=== PATIENT | female | born 2000 | race Caucasian/White ===

== ENCOUNTER 2024-07-18 03:32 | Inpatient (IN) | payer OTHER, SELFPAY ==
[2024-07-17 21:55] VITALS: BP 147/86; BMI 22.4
[2024-07-17 22:02] VITALS: BP 133/80
[2024-07-17 22:09] LABS: % Basophils 0.2 % (0-2); % Immature Granulocytes 0.4 % (0-0.5); % Monocytes 5.8 % (1.7-9.3); % Neutrophils 87.6 % (42.2-75.2); Absolute Immature Granulocytes 0.1 10^3/uL (0-0.05); Absolute Lymphocytes 0.8 10^3/uL (1.2-3.4); Absolute Monocytes 0.8 10^3/uL (0.1-0.6); Absolute Neutrophils 11.7 10^3/uL (1.4-6.5); Hematocrit 42.7 % (37.0-47.0); Hemoglobin 15.1 g/dL (12.0-16.0); Mean Corp Hgb Conc. 35.4 g/dL (33.0-37.0); Mean Corpuscular Hgb 29.4 pg (27.0-31.0); Mean Corpuscular Volume 83.1 fL (81.0-99.0); Mean Platelet Volume 9.7 fL (7.4-10.4); Nucleated Red Blood Cells % 0 %; Platelet Count 215 10^3/uL (130-400); Red Blood Cell Count 5.14 10^6/uL (4.20-5.40); White Blood Cell Count 13.4 10^3/uL (4.8-10.8)
[2024-07-17 22:25] LABS: HCG, Serum Qualitative Screen Negative
--- NOTE | 2024-07-17 22:30 | ED.GENMED ---
History of Present Illness
<ANGEL Zapien - Last Filed: 07/18/24 01:06>
General
Chief Complaint: Withdrawal Symptoms
Source: patient and police
Exam Limitations: none
Time Seen by Provider: 07/17/24 22:05
Travel History
Have you had any contact with someone who has COVID-19?: No
Comment: pt unsure
Do you have any symptoms of coronavirus? Fever > 100 degrees, chills, cough, shortness of breath, sore throat, loss of taste or smell, muscle aches, or headache?: Yes
Symptoms:: chills, cough, muscle aches, ACUÑA
History of Present Illness
History of Present Illness:
This is a 24 y/o F pt with PMH of opioid use disorder x 2 years presenting to the ED accompanied by police for half-way medical clearance and withdrawl symptoms from smoking fetanyl. Pt reports last time she used was 07/17/24 at 11am. Has been constantly
using 16 bags of fetanyl per day for 2 years. Reports this is the longest she has been without using. Denies IVDU. Denies ever being treated for withdrawl. She states she is nauseous denies vomiting. Cough, rhinorrhea, rash on bilateral cheeks and
neck present, LUQ abdominal tenderness and L flank tenderness. LMP 07/17/24 denies any chance of .
Past History
<ANGEL Zapien - Last Filed: 07/18/24 01:06>
Past History
ED Past Medical History: None
ED Past Surgical History: None
Social History
Drug: Narcotics
Review of Systems
<ANGEL Zapien - Last Filed: 07/18/24 01:06>
Review of Systems
Constitutional: Reports fever, fatigue and chills
EENT: Reports runny nose
Respiratory: Reports cough
Cardiac: Reports palpitations
ABD/GI: Reports abdominal pain and nausea
: Reports flank pain
Musculoskeletal: Reports back pain
Skin: Reports rash
Neurological: Reports headache
Endocrine: Reports no symptoms
Phy Exam
<ANGEL Zapien - Last Filed: 07/18/24 01:06>
General Physical Exam
General Presentation: well appearing
General age: appears stated age
General Skin: flushed
General Habitus: poor hygiene
General Mental: alert
Eye Exam
Pupil Exam: Bilateral: round and reactive
Cardiovascular Exam
Cardiovascular Exam: tachycardia
Pulmonary Exam
Pulmonary Exam: lungs clear
Cough: non productive cough
Gastrointestinal Exam
Gastrointestinal Exam: no organomegaly
Scores
<ST RupaliUT - Last Filed: 07/18/24 01:06>
COW Clinical Opiate Withdrawal Scale
Resting Pulse Rate: 101-120
Sweating-over past 30min not from room temp or activity: Flushed or observable moistness on face
Restlessness-observation during assessment: Able to sit still
Pupil Size: Pupils possibly larger than normal for room light
Bone or Joint Aches: Mild diffuse discomfort
Runny Nose or Tearing-not accounted for by cold/allergies: Nose running or tearing
GI Upset-over last 30min: Nausea or loose stool
Tremor-observation of outstretched hands: Tremor can be felt, but not observed
Yawning-observation during assessment: No yawning
Anxiety or Irritability: None
Gooseflesh Skin: Piloerrection of skin can be felt or hairs standing up on arms
Score: 14
Withdrawal Severity: Moderate Withdrawal, consider starting Suboxone
<Radha Dowling DO - Last Filed: 07/18/24 01:10>
COW Clinical Opiate Withdrawal Scale
Score: 14
Withdrawal Severity: Moderate Withdrawal, consider starting Suboxone
Course
<ANGEL Zapien - Last Filed: 07/18/24 01:06>
Orders/Labs/Results
Orders:
Orders
07/17/24 22:01
Test Result ONCE
07/17/24 22:03
Alcohol Urgent
Complete Blood Count/With Diff Urgent
Comprehensive Metabolic Panel Urgent
HCG, Serum Qualitative Screen Urgent
Comment: Notify provider if positive test present
07/17/24 22:09
Urine Drug Abuse Screen Urgent
Date Specimen was Collected: 07/18/24
Time Specimen was Collected: 00:18
07/17/24 22:28
Urinalysis Reflex To Culture Urgent
Date Specimen was Collected: 07/18/24
Time Specimen was Collected: 00:18
0.9% Sodium Chloride 1000 ml [Nss] 1,000 ml IV BOLUS
07/17/24 22:29
Electrocardiogram (*1) Urgent
Reason for Study: Tachycardia
EKG- Treatment ONCE
07/17/24 22:41
CR Chest - 2 Views Urgent
Comment:
Reason For Exam: cough, fever x 2 days
07/17/24 22:42
Add On- LAB Urgent
Tests Added?: hepatic function tests
0.9% Sodium Chloride 1000 ml [Nss] 2,000 ml IV BOLUS
Acetaminophen 1000MG/100Ml [Ofirmev] 1,000 mg in 100 ml IV ONCE
Acetaminophen IV Indication:: ED Narcotic History-ONCE
Ondansetron Injectable [Zofran] 4 mg IV NOW STA
07/17/24 22:59
COVID-19 Antigen Urgent
Source: Nasal Swab
Lactic Acid Urgent
Blood Culture Q30M
BRENNAN Source: Blood/Venous
Specimen Description:
Blood Culture Q30M
BRENNAN Source: Blood/Venous
Specimen Description:
Influenza A+B Rapid Molecular Urgent
BRENNAN Source: Nasal Swab
Specimen Description:
07/17/24 23:02
Metoclopramide [Reglan] 5 mg IV NOW STA
07/18/24 00:20
Fentanyl, Urine Urgent
Urine Microscopic Reflex Cult Urgent
Urine Culture Urgent
BRENNAN Source: U
Specimen Description:
Date Specimen was Collected: 07/18/24
Time Specimen was Collected: 00:18
07/18/24 00:42
CT Abd/pel Without Iv Or Oral Urgent
Comment:
Reason For Exam: left flank pain, hematuria, fever
07/18/24 01:01
Metoclopramide [Reglan] 5 mg IV NOW STA
07/18/24 01:02
CefTRIAXone [Rocephin] 1,000 mg IV NOW STA
07/18/24 01:03
Doxycycline Hyclate [Vibramycin] 100 mg 0.9% Sodium Chloride 250 ml [Nss] 250 ml IV NOW
Abnormal Lab Results
07/17/24 07/18/24
22:03 00:20
WBC 13.4 H 10^3/uL
(4.8-10.8)
Abs Immat Gran (auto) 0.1 H 10^3/uL
(0-0.05)
Absolute Neuts (auto) 11.7 H 10^3/uL
(1.4-6.5)
Absolute Lymphs (auto) 0.8 L 10^3/uL
(1.2-3.4)
Absolute Monos (auto) 0.8 H 10^3/uL
(0.1-0.6)
Neutrophils % 87.6 H %
(42.2-75.2)
Lymphocytes % 6.0 L %
(20.5-51.1)
Chloride 97 L mmol/L
(98-107)
BUN 23 H mg/dl
(7-17)
Creatinine 1.4 H mg/dL
(0.6-1.0)
Glucose 119 H mg/dl
(70-99)
Urine Ketones 3+ A
(Negative)
Ur Occult Blood Reflex 4+ A
(Negative)
Urine RBC 11-15 A /HPF
(0-2)
Urine Bacteria (Reflex) Moderate A
(Negative)
Urine Albumin (Reflex) 2+ A
(Neg - Trace)
Urine Fentanyl Screen Positive H
(Negative)
Ur Amphetamines Screen Positive H
(Negative)
U Methamphetamines Scrn Positive H
(Negative)
07/17/24 22:03
07/17/24 22:03
Vital Signs
Initial and Last Documented VS:
Initial Vital Signs
Temp Pulse Resp BP Pulse Ox
99.8 F 101 24 147/86 99
07/17/24 21:55 07/17/24 21:55 07/17/24 21:55 07/17/24 21:55 07/17/24 21:55
Last Documented Vital Signs
Temp Pulse Resp BP Pulse Ox
99.0 F 90 20 119/75 100
07/18/24 00:15 07/18/24 00:15 07/18/24 00:15 07/18/24 00:00 07/18/24 00:15
<Radha Dowling, DO - Last Filed: 07/18/24 01:10>
Orders/Labs/Results
Orders:
Orders
07/17/24 22:01
Test Result ONCE
07/17/24 22:03
Alcohol Urgent
Complete Blood Count/With Diff Urgent
Comprehensive Metabolic Panel Urgent
HCG, Serum Qualitative Screen Urgent
Comment: Notify provider if positive test present
07/17/24 22:09
Urine Drug Abuse Screen Urgent
Date Specimen was Collected: 07/18/24
Time Specimen was Collected: 00:18
07/17/24 22:28
Urinalysis Reflex To Culture Urgent
Date Specimen was Collected: 07/18/24
Time Specimen was Collected: 00:18
0.9% Sodium Chloride 1000 ml [Nss] 1,000 ml IV BOLUS
07/17/24 22:29
Electrocardiogram (*1) Urgent
Reason for Study: Tachycardia
EKG- Treatment ONCE
07/17/24 22:41
CR Chest - 2 Views Urgent
Comment:
Reason For Exam: cough, fever x 2 days
07/17/24 22:42
Add On- LAB Urgent
Tests Added?: hepatic function tests
0.9% Sodium Chloride 1000 ml [Nss] 2,000 ml IV BOLUS
Acetaminophen 1000MG/100Ml [Ofirmev] 1,000 mg in 100 ml IV ONCE
Acetaminophen IV Indication:: ED Narcotic History-ONCE
Ondansetron Injectable [Zofran] 4 mg IV NOW STA
07/17/24 22:59
COVID-19 Antigen Urgent
Source: Nasal Swab
Lactic Acid Urgent
Blood Culture Q30M
BRENNAN Source: Blood/Venous
Specimen Description:
Blood Culture Q30M
BRENNAN Source: Blood/Venous
Specimen Description:
Influenza A+B Rapid Molecular Urgent
BRENNAN Source: Nasal Swab
Specimen Description:
07/17/24 23:02
Metoclopramide [Reglan] 5 mg IV NOW STA
07/18/24 00:20
Fentanyl, Urine Urgent
Urine Microscopic Reflex Cult Urgent
Urine Culture Urgent
BRENNAN Source: U
Specimen Description:
Date Specimen was Collected: 07/18/24
Time Specimen was Collected: 00:18
07/18/24 00:42
CT Abd/pel Without Iv Or Oral Urgent
Comment:
Reason For Exam: left flank pain, hematuria, fever
07/18/24 01:01
Metoclopramide [Reglan] 5 mg IV NOW STA
07/18/24 01:02
CefTRIAXone [Rocephin] 1,000 mg IV NOW STA
07/18/24 01:03
Doxycycline Hyclate [Vibramycin] 100 mg 0.9% Sodium Chloride 250 ml [Nss] 250 ml IV NOW
Abnormal Lab Results
07/17/24 07/18/24
22:03 00:20
WBC 13.4 H 10^3/uL
(4.8-10.8)
Abs Immat Gran (auto) 0.1 H 10^3/uL
(0-0.05)
Absolute Neuts (auto) 11.7 H 10^3/uL
(1.4-6.5)
Absolute Lymphs (auto) 0.8 L 10^3/uL
(1.2-3.4)
Absolute Monos (auto) 0.8 H 10^3/uL
(0.1-0.6)
Neutrophils % 87.6 H %
(42.2-75.2)
Lymphocytes % 6.0 L %
(20.5-51.1)
Chloride 97 L mmol/L
(98-107)
BUN 23 H mg/dl
(7-17)
Creatinine 1.4 H mg/dL
(0.6-1.0)
Glucose 119 H mg/dl
(70-99)
Urine Ketones 3+ A
(Negative)
Ur Occult Blood Reflex 4+ A
(Negative)
Urine RBC 11-15 A /HPF
(0-2)
Urine Bacteria (Reflex) Moderate A
(Negative)
Urine Albumin (Reflex) 2+ A
(Neg - Trace)
Urine Fentanyl Screen Positive H
(Negative)
Ur Amphetamines Screen Positive H
(Negative)
U Methamphetamines Scrn Positive H
(Negative)
07/17/24 22:03
07/17/24 22:03
Vital Signs
Temp: 101.6 F
Initial and Last Documented VS:
Initial Vital Signs
Temp Pulse Resp BP Pulse Ox
99.8 F 101 24 147/86 99
07/17/24 21:55 07/17/24 21:55 07/17/24 21:55 07/17/24 21:55 07/17/24 21:55
Last Documented Vital Signs
Temp Pulse Resp BP Pulse Ox
99.0 F 90 20 119/75 100
07/18/24 00:15 07/18/24 00:15 07/18/24 00:15 07/18/24 00:00 07/18/24 00:15
<ANGEL Zapien - Last Filed: 07/18/24 01:06>
*Critical Care Note
Total Time (30-74mins, 75-104mins- exclusive of procedures): Not Applicable
<Radha Dowling DO - Last Filed: 07/18/24 01:10>
*Radiology
Radiology exam reviewed: preliminary read by ED provider (Chest x-ray shows left lower lobe infiltrate)
*Pulse Oximetry
Patient hypoxic: no
*Apparel Merchandiser Interpretation
Rate: tachycardiac
Interpretation: abnormal
Rhythm: sinus
*Critical Care Note
Total Time (30-74mins, 75-104mins- exclusive of procedures): Not Applicable
ED Attending Note
<ANGEL Zapien - Last Filed: 07/18/24 01:06>
-
Portions of this chart may have been created with voice recognition software.� Occasional wrong word or��sound alike� substitutions may have occurred due to the inherent limitations of voice recognition software.
<Radha Dowling DO - Last Filed: 07/18/24 01:10>
ED Attending Note
Patient seen and examined by attending physician: Yes
I performed the substantive portion of visit, reviewed & personally made and approve the management plan that is documented in note by myself or GENTRY.: Yes
ED Attending Note:
This is a 24-year-old female who is brought to the ED by [facility] for medical clearance for incarceration. She has history of opioid use disorder, admits to smoking fentanyl generally 16 bags per day for the past 2 years. Last use, 11
am. She also has prior history of self injury, prior history of cutting. She takes no medicines on a daily basis. No prior treatment for opioid use disorder.
She complains of URI symptoms, cough, congestion, intermittent fever and chills over the past 2 to 3 days. She admits that she asked her father to bring her to the hospital 2 days ago due to cough, fever, chills. She also notes some urinary
frequency over the past few days but denies dysuria nor urgency nor hematuria. She complains of left upper quadrant to left flank pain that began perhaps 1 to 2 days ago. She denies injury or fall.
She complains of moderate nausea, sporadic vomiting this evening, similar to prior withdrawal symptoms in the past. No hematemesis, no diarrhea nor constipation.
She is noted to have red blotchy rash to her face and anterior neck. She denies itch, denies swelling. Admits to sporadic similar rash generally onset with withdrawal symptoms.
Her normal menstrual period began today.
GENERAL: 24-year-old female appears her stated age, awake and alert, easily communicative, mildly ill in appearance. Oral temperature 101.6 �F. Borderline tachycardic during my initial exam. Intermittent moist nonproductive cough is noted.
EYE: pupils equal and reactive. anicteric
NECK: Supple, nontender, no meningismus, no significant adenopathy.
ENT: posterior pharynx is without injection, scant pearly PND, oral mucosa is mildly dry. TM clear b/l, nares with boggy turbinates with pearly to pale yellow rhinorrhea.
CARDIAC: Regular rhythm at 99. no murmur.
LUNGS: no respiratory distress. intermittent cough. scattered end expiratory wheezing at bases
ABDOMEN: Soft, nondistended, moderate TTP LUQ and exquisite TTP left flank with (+)CVA tenderness on the left. no r/g, normoactive BS.
NEUROLOGICAL: Alert and oriented x3, no focal neuro deficits.
SKIN: Hot to touch and dry, normal color, skin intact. erythematous, confluent patchy rash to face, anterior neck. horizontal area of erythema left posterior lower flank without ecchymosis.
MUSCULOSKELETAL: No C/C/E. peripheral pulses are full and equal b/l. No palpable tenderness.
PSYCH: Normal and appropriate interaction.
acute febrile illness with URI, concern for pneumonia, viral URI, covid, flu, sepsis
Left flank pain, concern for pyelonephritis, ureteric stone
concern for opioid w/d syndrome
Will check labs, including flu, covid, lactic acid, blood cultures, urinalysis, UDS
will check CXR
will consider CT abd pelvis
Will initiate IVF, give zofran for nausea, tylenol for fever
will check EKG-assess QT prior to zofran
to consider initiation of buprenorphine but at this point, clinically, febrile illness seems to be our most pressing issue. Only mild w/d symptoms currently.
EKG shows mildly prolonged QT. Therefore will hold off on zofran and instead give Reglan for nausea.
01:05
Fever improving.
Nausea improved but has not resolved.
CXR shows LLL infiltrate. This is likelyh source of LUQ, L flank pain
urinalysis shows mod bacteria but only 6-10 WBC's and is a contaminated specimen. Not consistent with UTI.
Will continue IVF, continue reglan.
Will start Rocephin, doxy for CAP
Will continue to observe for w/d symptoms
Will admit to hospitalist service.
Discharge Plan
Departure
Patient Disposition: Admit
Date of Disposition: 07/18/24
Time of Disposition: 01:06
Admit to: Telemetry
Admit to doctor: Yvonne
Presentation/result/management discussed w/ accepting MD/DO: Hospitalist
Condition: Fair
Discharge Problem:
community acquired LLL pneumonia, Dehydration with RACHAEL, Fever r/o sepsis, Opioid use disorder
Prescriptions:
No Action
No Current Medications
0
Referrals:
NONE,* [Family Provider] -
Interventions
Interventions:
*Risk Screen - Suicide Last Done: 07/17/24 21:55
*General Assessment Last Done: 07/17/24 21:55
*Neglect/Abuse Screening Last Done: 07/17/24 21:55
*ED- Fall Risk Assessment Last Done: 07/17/24 21:55
*ED COVID-19 Vaccine History Last Done: 07/17/24 22:07
ED- Neurological Assessment Last Done: 07/17/24 22:08
ED-Psychological Assessment Last Done: 07/17/24 22:08
Discharge Date and Time
Print Language: MALAGASY
[2024-07-17 22:32] LABS: Alcohol < 10 mg/dl; Blood Urea Nitrogen 23 mg/dl (7-17); Calcium 9.7 mg/dl (8.4-10.2); Carbon Dioxide 25 mmol/L (22-30); Chloride 97 mmol/L (98-107); Estimated Creatinine Clearance 58 ml/min; Glucose 119 mg/dl (70-99); Potassium 3.6 mmol/L (3.5-5.1); Sodium 138 mmol/L (135-145); eGFR 53.54
[2024-07-17] MEDS: NSS 2000 IV (22:57)
[2024-07-17] MEDS: OFIRMEV 100 IV (22:58)
[2024-07-17 23:00] VITALS: BP 142/79
[2024-07-17 23:09] LABS: AST (SGOT) 36 U/L (14-36); Albumin 4.3 g/dl (3.5-5.0); Alkaline Phosphatase 84 U/L (38-126); Total Protein 7.8 g/dl (6.3-8.2)
[2024-07-17 23:19] LABS: Lactic Acid 1.5 mmol/L (0.7-2.0)
[2024-07-17 23:22] LABS: COVID-19 Antigen Negative (Negative)
[2024-07-17 23:26] VITALS: BP 142/80
[2024-07-17 23:27] LABS: ALT (SGPT) 18 U/L (0-35)
[2024-07-17] MEDS: REGLAN 5 MG IV (23:29)
[2024-07-18] VITALS (17 sets, daily range): BP systolic 110–158; BP diastolic 74–126; BMI 22.4
[2024-07-18 00:27] LABS: Urine Albumin 2+ (Neg - Trace); Urine Bilirubin Negative (Negative); Urine Character Slightly Cloudy (Clear); Urine Color Yellow; Urine Glucose Negative (Negative); Urine Ketone 3+ (Negative); Urine Leukocyte Negative (Negative); Urine Nitrite Negative (Negative); Urine Occult Blood 4+ (Negative); Urine Urobilinogen Negative (Neg - 1+)
[2024-07-18 00:44] LABS: Amphetamines Positive (Negative); Barbiturates Negative (Negative); Benzodiazepines Negative (Negative); Buprenorphine Negative (Negative); Cocaine Negative (Negative); Marijuana Negative (Negative); Methadone Negative (Negative); Methamphetamines Positive (Negative); Opiates Negative (Negative); Phencyclidine Negative (Negative); Tricyclic Antidepressants Negative (Negative)
[2024-07-18 00:48] LABS: Urine Squamous Cell >30 /LPF (Few)
[2024-07-18 00:49] LABS: Urine Amorphous Seen; Urine Hyaline Cast 0-2 /LPF (0-2)
[2024-07-18 00:51] LABS: Urine Bacteria Moderate (Negative); Urine Mucus Moderate
[2024-07-18 00:55] LABS: Fentanyl, Urine Positive (Negative)
[2024-07-18] MEDS: ROCEPHIN 1000 MG IV (01:13)
[2024-07-18] MEDS: REGLAN 5 MG IV ×2 (01:13→20:29)
[2024-07-18] MEDS: VIBRAMYCIN 260 MG IV (01:53)
--- NOTE | 2024-07-18 02:59 | HPS.HSE ---
Family Physician
-
Family Physician: * NONE
Chief Complaint
-
Cough and fevers
History of Present Illness
This is a 24-year-old with opioid abuse disorder who presents to the emergency department from correctional facility where she was being held temporarily for a misdemeanor with cough and nausea and fever and tachycardia.
Patient reported that she was booked on Thursday, last use of fentanyl was Thursday at 11 AM. She reported that while she was undergoing intake she had nausea. She was found to be tachycardic and when they checked her temperature she was febrile so
she was brought to the emergency department for clearance. Patient reports that she has had about 2 days of shortness of breath and a productive cough. She reports intermittent chills. She is unaware that she has been having fevers prior to this.
She denies any sick contacts. She has no history of immunosuppression. She has no recent travel. She vapes regularly. She uses approximately 16 bags of fentanyl per day and has been doing so for the last 2 years.
In the emergency department she was febrile to 101.5,6, blood pressure was 127/80 with a pulse of 86 satting at 9 7% on room air. ECG shows a normal sinus rhythm at a rate of 91, Qtc 574, chest x-ray shows a left lower lobe infiltrate. She also
had a CT scan of the abdomen due to the nausea vomiting which showed gastric wall thickening and prominent air-fluid levels along with mild small bowel wall thickening consistent with a gastroenteritis.
She had a white count of 13.7, hemoglobin and platelets were normal. Electrolytes were within the normal range. Creatinine was slightly elevated at 1.4 but no priors for comparison.
UA was unremarkable, drug screen was positive for fentanyl, amphetamine. Negative for ethanol. She was COVID-negative, flu negative.
Medical History
Past Medical History
Past Medical History: Reports Other (Fentanyl use)
Past Surgical History: Reports None
Social History
Tobacco: Vaping
Alcohol: None
Drug: Narcotics
Personal: Single
Family History
Family History: Not pertinent
Allergies / Home Medications
Allergies reflects when Allergies were last updated in [facility].
Home Medications with original date entered in [facility]
Allergy/Medication List:
Allergies
Allergy/AdvReac Type Severity Reaction Status Date / Time
No Known Allergies Allergy Unverified 07/17/24 21:53
Home Medications
No Meds [No Current Medications] 07/17/24
Review of Systems
-
History Source: Patient
Constitutional: Reports No Symptoms
EENT: Reports No Symptoms
Respiratory: Reports Cough and Trouble Breathing
Cardiac: Reports No Symptoms
Abdomen/GI: Reports Abdominal Pain, Nausea and Vomiting
: Reports No Symptoms
Musculoskeletal: Reports No Symptoms
Skin: Reports No Symptoms
Neurological: Reports No Symptoms
Endocrine: Reports No Symptoms
Hematologic/Lymphatic: Reports No Symptoms
Psych: Reports No Symptoms
Physical Exam
Vital Signs
Vital Signs
Temp Pulse Resp BP Pulse Ox
99.0 F 86 21 127/83 97
07/18/24 00:15 07/18/24 02:30 07/18/24 02:30 07/18/24 02:00 07/18/24 01:54
Physical Exam
General: Well Developed, Well Nourished, No Apparent Distress, Comfortable and Conversant
HEENT: NormoCephalic, Anicteric, Moist mucous membranes and Atraumatic
Respiratory: Clear
Cardiac: S1/S2 and Regular Rhythm
Breast: Deferred by me
GI: Soft, Non Tender, Non Distended and Normal Bowel Sounds
Rectal: Deferred by Provider
Genito-urinary: Deferred by me
Musculoskeletal: No Clubbing, No Cyanosis and No Edema
Skin: Warm
Neuro: AO x 3 and Nonfocal/grossly intact
Hematologic/Lymphatic: No Lymphadenopathy
Psych: Calm
Laboratory Results
-
07/17/24 22:03
07/17/24 22:03
Laboratory Results
Lactic Acid 1.5 mmol/L (0.7-2.0) 07/17/24 22:59
Total Bilirubin 1.0 mg/dl (0.2-1.3) 07/17/24 22:03
AST 36 U/L (14-36) 07/17/24 22:03
ALT 18 U/L (0-35) 07/17/24 22:03
Alkaline Phosphatase 84 U/L (38-126) 07/17/24 22:03
Data Reviewed
-
Diagnostic Radiology: Image Personally Visualized and interpreted
CT Scan: Report Reviewed by me
Medical Tests (Nuc Med, Echo, EKG etc): Image Personally Visualized and interpreted
Lab Data: Labs Reviewed by me
Old Records: Reviewed
Impression/Plan
-
IMPRESSION:
24-year-old female with history of fentanyl use presenting to the emergency department with cough and shortness of breath found to have a left lower lobe pneumonia. Last fentanyl use was 11 AM on Thursday. She is not hypoxic but febrile and slightly
tachycardic initially. She currently is well-appearing and in no acute distress. She shows no signs of acute withdrawal at this time but she has received some medications.
PLAN:
1. Pneumonia - community acquired pneumonia, no known risk factors besides drug use, non-iv
- admit to telemetry, monitor qt
-due to fentanyl use and elongation of QT will cover with ceftriaxone doxycycline at this time
-Blood cultures sent
-Supportive measures with incentive spirometry, cough suppression antiemetics and pain control
-If remains stable probably likely to be discharged within 24 to 48 hours
2. Opioid use- last use within 24 hours. Does not appear to be in active withdrawal but at high risk
- COWS with COWs protocol
- case management for referral for outpatient detox
DVT PPX - lovenox sq
code status - full code
[2024-07-18] MEDS: NSS 1000 IV ×3 (04:35→23:44)
[2024-07-18 05:31] LABS: Hematocrit 37.9 % (37.0-47.0); Hemoglobin 13.7 g/dL (12.0-16.0); Mean Corp Hgb Conc. 36.1 g/dL (33.0-37.0); Mean Corpuscular Hgb 29.8 pg (27.0-31.0); Mean Corpuscular Volume 82.6 fL (81.0-99.0); Mean Platelet Volume 9.7 fL (7.4-10.4); Platelet Count 200 10^3/uL (130-400); Red Blood Cell Count 4.59 10^6/uL (4.20-5.40); Red Cell Dist. Width 12.3 % (11.5-14.5); White Blood Cell Count 16.4 10^3/uL (4.8-10.8)
[2024-07-18] MEDS: SUBUTEX 8 MG SL ×2 (05:48→07:32)
[2024-07-18 05:53] LABS: ALT (SGPT) 15 U/L (0-35); AST (SGOT) 25 U/L (14-36); Albumin 3.5 g/dl (3.5-5.0); Alkaline Phosphatase 84 U/L (38-126); Blood Urea Nitrogen 19 mg/dl (7-17); Calcium 8.9 mg/dl (8.4-10.2); Carbon Dioxide 22 mmol/L (22-30); Chloride 105 mmol/L (98-107); Creatine Phosphokinase 132 U/L (30-135); Direct Bilirubin 0.3 mg/dl (0.0-0.4); Estimated Creatinine Clearance 67 ml/min; Glucose 104 mg/dl (70-99); Magnesium 1.6 mg/dl (1.6-2.3); Potassium 3.2 mmol/L (3.5-5.1); Sodium 141 mmol/L (135-145); Total Bilirubin 0.6 mg/dl (0.2-1.3); Total Protein 6.4 g/dl (6.3-8.2); eGFR > 60.00
[2024-07-18] MEDS: KCL 40 MEQ PO (06:32)
[2024-07-18] MEDS: VIBRAMYCIN 100 MG PO (07:31)
--- NOTE | 2024-07-18 08:16 | W.PN.HOSP.TC ---
Addendum entered and electronically signed by Cristine Kaur MD 07/18/24 09:05:
discussed plan with RN and pharmacy. Patient was taking 16 bags of fentanyl, that's equivalent to 4800mg oxycodone/day. She currently confirms that she is feeling better. She has received 2 doses of normal dosing buprenorphine. I will put
Oxycodone 20mg IR PRN. If she starts to appear in worsening withdrawal, then would start Oxycodone ER per microdosing order set to help treat withdrawal. Per pharmacy, would not now go back to lower dosing of buprenorphine that is within
microdosing order set but continue typical COWS treatment protocol.
Original Note:
Today's Communication/Plan
-
antibiotics
buprenorphine
likely discharge tomorrow if remains afebrile
Assessment / Plan
Assessment / Plan
IMPRESSION:
24-year-old female with history of fentanyl use presenting to the emergency department with cough and shortness of breath found to have a left lower lobe pneumonia. Last fentanyl use was 11 AM on Thursday. She is not hypoxic but febrile and slightly
tachycardic initially. She currently is well-appearing and in no acute distress. She shows no signs of acute withdrawal at this time but she has received some medications.
CT A/P
IMPRESSION:
1. Left lower lobe airspace consolidation, suggestive of pneumonia. No left pleural effusion.
2. No evidence of nephrolithiasis, hydronephrosis, or perinephric stranding.
3. Possible mild gastroenteritis.
PLAN:
1. Pneumonia - community acquired pneumonia, no known risk factors besides drug use, non-iv
- admit to telemetry, monitor qt
-due to fentanyl use and elongation of QT will cover with ceftriaxone doxycycline at this time
-Blood cultures sent
-Supportive measures with incentive spirometry, cough suppression antiemetics and pain control
-If remains stable probably likely to be discharged within 24 to 48 hours
2. Opioid use- last use within 24 hours. Does not appear to be in active withdrawal but at high risk
- COWS with COWs protocol - patient tolerating regular buprenorphine dosing
- case management for referral for outpatient detox
Hypokalemia
-s/p repletion
RACHAEL
-continue IVF
DVT PPX - lovenox sq
code status - full code
Anticipated Discharge: 24 - 48 hours
Subjective/Interval History
-
Date of Service: July 18, 2024
she states she is feeling better
has an appetite and wants to eat today
Objective Data
-
Labs:
Laboratory Results
07/17/24 07/18/24
22:03 05:07
WBC 13.4 H 16.4 H
Hgb 15.1 13.7
Hct 42.7 37.9
Plt Count 215 200
Sodium 138 141
Potassium 3.6 3.2 L
Chloride 97 L 105
Carbon Dioxide 25 22
BUN 23 H 19 H
Creatinine 1.4 H 1.2 H
Glucose 119 H 104 H
Calcium 9.7 8.9
Total Bilirubin 1.0 0.6
AST 36 25
ALT 18 15
Alkaline Phosphatase 84 84
Vital Signs:
Vital Signs
Temp Pulse Resp BP Pulse Ox
98.1 F 81 26 141/77 100
07/18/24 07:33 07/18/24 07:00 07/18/24 07:00 07/18/24 06:00 07/18/24 07:00
I&O
07/17/24 07/18/24 07/19/24
06:59 06:59 06:59
Intake Total 400 / 400
Balance 400 / 400
Review of Systems
-
History Source: Patient
All other systems: Reviewed and negative
Physical Exam
-
General: No Apparent Distress
HEENT: PERRLA
Respiratory: Clear to Auscultation; Negative Wheezes
Cardiac: Regular Rhythm and S1/S2
GI: Soft and Nontender
Musculoskeletal: No Edema
Skin: Warm and Dry; Negative Rash
Neuro: AO x 3
Psych: Calm
Data Reviewed
-
Diagnostic Radiology: Report Reviewed by me
Labs: Labs Reviewed by me
[2024-07-18] MEDS: TYLENOL 1000 MG PO (09:23)
--- NOTE | 2024-07-18 09:27 | PTCARENOTE ---
Pt AAOx3 cooperative, rocking back and forth swaety and pale. Coughing at times. Talkative at times. 2 Physical Therapy Asst sitting with pt.
[2024-07-18 09:43] LABS: Phosphorus 3.7 mg/dl (2.5-4.5)
[2024-07-18] MEDS: MAGNESIUM OXIDE 500 MG PO (13:26)
--- NOTE | 2024-07-18 13:27 | PTCARENOTE ---
Pt did not eat breakfast although it was ordered for her
--- NOTE | 2024-07-18 13:51 | CM ---
Patient in Custody of [facility]'s Office here with Dx pneumonia, Opiod use. Tox screen + for fentanyl, amphetamine, methamphetamine. Receiving Subutex. COWS per nursing. Per nurse; alert, ambulatory.
Spoke with patient who states she has not done any prior inpatient or outpatient drug rehab and would be interested in doing that.
Spoke with the [facility] Deputies in patient's room; patient was not booked into the care home yet, as they send her here for medical clearance. She will remain in custody while here and will discharge with the guards. Patient will have appt at the
[facility] once discharged.
Spoke with Mary, Nurse [facility]; they were not aware of this patient as she was not yet processed at the care home. They will handle the request for drug rehab by placing the patient on a drug taper when she is at [facility]. The for nurse report
[phone], fax [phone].
Plan discharge to [facility].
[2024-07-18] MEDS: CATAPRES 0.1 MG PO (14:08)
--- NOTE | 2024-07-18 14:50 | PTCARENOTE ---
Pt taken to BR voided, Brushed her teeth , wiped with Lavender clothes. Given a brush and comb for her hair. Pt more tremulus at this time. Clnidine given as ordered for BP
[2024-07-18] MEDS: LOVENOX 40 MG SC (17:56)
--- NOTE | 2024-07-18 18:22 | PTCARENOTE ---
Took pt to BR and norticed Sidney knees were red and warm to touch . TT DR Kaur
[2024-07-18] MEDS: PEPCID 20 MG IV (18:40)
--- NOTE | 2024-07-18 18:40 | W.PN.UPDATE ---
Update Note
Progress Note Update
patient with new diffuse confluent erythematous rash along cheeks, upper back, upper chest, bilateral knees. No lip or tongue swelling.
Can bend bilateral knees, no significant tenderness. No wheezing on exam. No lip or tongue swelling. Rash is blanchable.
She denies itching and had not noticed the rash, RN noted knee redness.
Concern for allergic reaction. Likely related to antibiotics - listed both as allergy for now, and will transition to Levaquin.
She received Clonidine earlier. Will stop this medication for now as well.
Benadryl 50mg x 1 now and include rash/itching in PRN
pepcid x 1
daily claritin
change Antibiotics to Levaquin
*patient will need to follow up with an echocardiograph tech after discharge to clarify allergies
[2024-07-18] MEDS: NSS (PRESERVATIVE FREE) 8 ML IV (18:41)
[2024-07-18] MEDS: BENADRYL 50 MG IV (18:43)
[2024-07-18] MEDS: ZANAFLEX 2 MG PO (20:27)
[2024-07-18] MEDS: LEVAQUIN 750 MG PO (21:02)
[2024-07-19] VITALS (11 sets, daily range): BP systolic 127–145; BP diastolic 84–97; BMI 22.9
--- NOTE | 2024-07-19 00:08 | PTCARENOTE ---
Pt with desat to 70s while laying flat, 2L O2 placed, pt returned to baseline 99%. Does report some slight SOB. Presents with moist CONCESSION STAND ATTENDANT cough. COWS as documented. Medicated per JUN. Pt with LUE cuffed to bed, two officers present at bedside. Call
[facility] within reach. IVF remain intact through [facility].
[2024-07-19 04:39] LABS: Hematocrit 33.4 % (37.0-47.0); Hemoglobin 11.9 g/dL (12.0-16.0); Mean Corp Hgb Conc. 35.6 g/dL (33.0-37.0); Mean Corpuscular Volume 84.1 fL (81.0-99.0); Mean Platelet Volume 9.7 fL (7.4-10.4); Platelet Count 189 10^3/uL (130-400); Red Blood Cell Count 3.97 10^6/uL (4.20-5.40); Red Cell Dist. Width 12.6 % (11.5-14.5); White Blood Cell Count 11.3 10^3/uL (4.8-10.8)
[2024-07-19 05:10] LABS: Blood Urea Nitrogen 15 mg/dl (7-17); Calcium 8.7 mg/dl (8.4-10.2); Carbon Dioxide 20 mmol/L (22-30); Chloride 110 mmol/L (98-107); Estimated Creatinine Clearance 89 ml/min; Glucose 106 mg/dl (70-99); Magnesium 1.7 mg/dl (1.6-2.3); Potassium 3.6 mmol/L (3.5-5.1); Sodium 142 mmol/L (135-145); eGFR > 60.00
[2024-07-19 07:18] LABS: % Basophils 0.2 % (0-2); % Eosinophils 1.5 % (0-6); % Immature Granulocytes 1.2 % (0-0.5); % Monocytes 6.5 % (1.7-9.3); % Neutrophils 67.6 % (42.2-75.2); Absolute Eosinophils 0.2 10^3/uL (0-0.7); Absolute Immature Granulocytes 0.1 10^3/uL (0-0.05); Absolute Lymphocytes 2.6 10^3/uL (1.2-3.4); Absolute Monocytes 0.7 10^3/uL (0.1-0.6); Absolute Neutrophils 7.6 10^3/uL (1.4-6.5); Nucleated Red Blood Cells % 0 %
--- NOTE | 2024-07-19 08:42 | W.PN.HOSP.TC ---
Today's Communication/Plan
-
change fluids
monitor PO intake
anticipate DC tomorrow; need to ensure rash fully resolved and appetite improved
repeat EKG to monitor QTc
Assessment / Plan
Assessment / Plan
IMPRESSION:
24-year-old female with history of fentanyl use presenting to the emergency department with cough and shortness of breath found to have a left lower lobe pneumonia. Last fentanyl use was 11 AM on Thursday. She is not hypoxic but febrile and slightly
tachycardic initially. She currently is well-appearing and in no acute distress. She shows no signs of acute withdrawal at this time but she has received some medications.
CT A/P
IMPRESSION:
1. Left lower lobe airspace consolidation, suggestive of pneumonia. No left pleural effusion.
2. No evidence of nephrolithiasis, hydronephrosis, or perinephric stranding.
3. Possible mild gastroenteritis.
PLAN:
1. Pneumonia - community acquired pneumonia, no known risk factors besides drug use, non-iv
-admitted to telemetry
-patient with diffuse erythematous blanchable rash after receiving ceftriaxone/doxycycline. For now those are listed as allergies and antibiotics switched to Levaquin (repeat EKG with improved qtc)
-repeat EKG now on Levaquin
-F/U cultures
-Supportive measures with incentive spirometry, cough suppression antiemetics and pain control
2. Opioid use- last use within 24 hours prior to admission.
- started on COWS protocol and tolerating
- patient was using 16 bags fentanyl per day which = 4800mg oxycodone.
- She remains without significant withdrawal
-oxycodone PRN
-clonidine held as this was also given pre-rash
- case management for referral for outpatient detox
-OK to DC once patient eating and drinking OK
Rash
-allergic reaction to either Ceftriaxone/Doxy/ Clonidine or buprenorphine
-antibiotics and clonidine held for now
-if rash recurs will stop buprenorphine
RACHAEL
-now resolved
-change IVF to D5 maintenance with K
Hypokalemia
-s/p repletion
DVT PPX - lovenox sq
code status - full code
51 minutes spent on patient care
Anticipated Discharge: 24 - 48 hours
Subjective/Interval History
-
Date of Service: July 19, 2024
rash improving
denies feeling tremulous but doesn't have an appetite
no abdomninal pain
Objective Data
-
Labs:
Laboratory Results
07/19/24
04:19
WBC 11.3 H
Hgb 11.9 L
Hct 33.4 L
Plt Count 189
Sodium 142
Potassium 3.6
Chloride 110 H
Carbon Dioxide 20 L
BUN 15
Creatinine 0.9
Glucose 106 H
Calcium 8.7
Vital Signs:
Vital Signs
Temp Pulse Resp BP Pulse Ox
98.0 F 72 12 141/85 94
07/19/24 03:00 07/19/24 04:00 07/19/24 04:00 07/19/24 04:00 07/19/24 04:00
I&O
07/18/24 07/19/24 07/20/24
06:59 06:59 06:59
Intake Total 400 / 400 1200 / 1200
Balance 400 / 400 1200 / 1200
Review of Systems
-
History Source: Patient
All other systems: Reviewed and negative
Physical Exam
-
General: Other (disheveled appearing, some erythema across right cheek blanchable)
HEENT: PERRLA
Respiratory: Clear to Auscultation; Negative Wheezes
Cardiac: Regular Rhythm and S1/S2
GI: Soft and Nontender
Musculoskeletal: No Edema
Skin: Warm, Dry and Rash (rash resolved b/l knees; mild erythema across chest )
Neuro: AO x 3
Psych: Calm
Data Reviewed
-
Diagnostic Radiology: Report Reviewed by me
Labs: Labs Reviewed by me
[2024-07-19] MEDS: SUBUTEX 16 MG SL (08:49)
[2024-07-19] MEDS: CLARITIN 10 MG PO (08:50)
[2024-07-19] MEDS: KCL 1010 MEQ IV (09:31)
[2024-07-19] MEDS: ROXICODONE 20 MG PO (09:34)
--- NOTE | 2024-07-19 13:21 | CM ---
Addendum entered by Louise Muniz RN 07/19/24 15:46:
Met with KURT Burks;
he met with the patient who shared that she lives in [place] with her boyfriend who also uses drugs.
He provided drug rehab resources to the patient.
Vitaliy confirmed with patient that she was not taking Suboxone in the past.
Vitaliy spoke with Dr Kaur who requested he set her up with Suboxone provider, and he is working on that.
KURT offered patient Inpatient Drug Rehab following her release from custody, and advised her she could return to the ED and he could place the patient from there. Vitaliy says that the patient made some excuses that she had to go to a so
could not do inpatient rehab.
Plan contact [employer] when patient is discharged.
Original Note:
Patient in Custody of [facility]'s Office here with Dx pneumonia, Opiod use. Tox screen + for fentanyl, amphetamine, methamphetamine. Receiving Subutex, PO Abx, IVF. Patient developed body rash with concern for allergic reaction, probable drug rash.
COWS improved today per nursing. Per nurse; alert, ambulatory.
Met with Sgt Marlo Norman, [employer] [facility] (ph [phone]); per the Harry, as patient is not being discharged today the billing department supervisor is releasing the administrative assistant coordinator's office from the duty of monitoring her. The bench warrant is still active. He requests that
nursing unit or CM contact his office prior to discharge for her pickup. He is aware that the hospital is not responsible to prevent the patient from leaving should she intend to do so, as she is in their custody. Sgt Norman provided copy of
Letter from Rima Villalta, Judicial Nut Sheller Machine Operator to Hon Monika Bundy- letter placed in chart.
Case Managment Director Leighann Arcos, Dr Kaur, Nurse Nancy, and Trap Setter Rosamaria are all aware of the above.
Request from Dr Kaur for KURT to see patient while she is still in custody and assist with need for Suboxone.
Spoke with KURT Burks; he will see the patient today and provide resources. They cannot place patient in drug rehab while she is still in custody.
Plan follow up with [facility].
Plan contact 's Office when patient is discharged.
[2024-07-19] MEDS: LOVENOX 40 MG SC (17:45)
[2024-07-19] MEDS: LEVAQUIN 750 MG PO (21:22)
--- NOTE | 2024-07-19 21:37 | PTCARENOTE ---
received patient from previous shift. patient aaox3 and quiet. COWS 4. pupils still dilated and reactive. on RA lungs are clear. denies any nausea or pain. VVS. Assessment as documented. Call [facility] in reach.
[2024-07-19] MEDS: REGLAN 5 MG IV (22:18)
--- NOTE | 2024-07-19 22:49 | PTCARENOTE ---
patient began vomiting and stated that the nausea came on very quick and then vomiting. see MAR, prn meds given. Continuing to monitor patient.
[2024-07-19] MEDS: D5LR 1000 IV (23:16)
[2024-07-20] VITALS (8 sets, daily range): BP systolic 119–155; BP diastolic 80–101
[2024-07-20 04:36] LABS: Hematocrit 34.2 % (37.0-47.0); Hemoglobin 11.7 g/dL (12.0-16.0); Mean Corp Hgb Conc. 34.2 g/dL (33.0-37.0); Mean Corpuscular Hgb 28.9 pg (27.0-31.0); Mean Corpuscular Volume 84.4 fL (81.0-99.0); Mean Platelet Volume 9.3 fL (7.4-10.4); Platelet Count 222 10^3/uL (130-400); Red Blood Cell Count 4.05 10^6/uL (4.20-5.40); Red Cell Dist. Width 12.5 % (11.5-14.5); White Blood Cell Count 8.3 10^3/uL (4.8-10.8)
[2024-07-20 04:46] LABS: Blood Urea Nitrogen 10 mg/dl (7-17); Calcium 9.3 mg/dl (8.4-10.2); Carbon Dioxide 23 mmol/L (22-30); Chloride 110 mmol/L (98-107); Estimated Creatinine Clearance 89 ml/min; Glucose 111 mg/dl (70-99); Magnesium 1.6 mg/dl (1.6-2.3); Potassium 3.8 mmol/L (3.5-5.1); Sodium 140 mmol/L (135-145); eGFR > 60.00
--- NOTE | 2024-07-20 07:44 | PTCARENOTE ---
Pt AAOx3 no s/s of distress or withdraw forposs dc today. [facility] office to be called 1hr prior
[2024-07-20] MEDS: CLARITIN 10 MG PO (08:13)
--- NOTE | 2024-07-20 08:21 | W.PN.HOSP.TC ---
Today's Communication/Plan
-
plan to [facility] later this morning after confirm rehab plan with KURT
RN to call at [facility] as patient needs to go to a court hearing
Assessment / Plan
Assessment / Plan
IMPRESSION:
24-year-old female with history of fentanyl use presenting to the emergency department with cough and shortness of breath found to have a left lower lobe pneumonia. Last fentanyl use was 11 AM on Thursday.
CT A/P
IMPRESSION:
1. Left lower lobe airspace consolidation, suggestive of pneumonia. No left pleural effusion.
2. No evidence of nephrolithiasis, hydronephrosis, or perinephric stranding.
3. Possible mild gastroenteritis.
PLAN:
1. Pneumonia - community acquired pneumonia, no known risk factors besides drug use, non-iv
-admitted to telemetry
-patient with diffuse erythematous blanchable rash after receiving ceftriaxone/doxycycline. For now those are listed as allergies and antibiotics switched to Levaquin (repeat EKG with improved qtc)
-QTc after Levaquin dose with stable QTc
-OK for [facility] on 2 more doses of Levaquin to complete a 5 day antibiotic course
2. Opioid use- last use within 24 hours prior to admission.
- started on COWS protocol and tolerating
- patient was using 16 bags fentanyl per day which = 4800mg oxycodone.
- She remains without significant withdrawal
-clonidine held as this was also given pre-rash
- discussing plan with KURT as possible patient will go home after court hearing. Will likely prescribe Buprenorphine at [facility]
Rash
-allergic reaction to either Ceftriaxone/Doxy/ Clonidine or buprenorphine
-antibiotics and clonidine held for now
-if rash recurs will stop buprenorphine
-rash fully resolved this morning
RACHAEL
-now resolved
-s/p IVF, OK to stop
Hypokalemia
-s/p repletion
DVT PPX - lovenox sq
code status - full code
51 minutes spent on patient care
Anticipated Discharge: Today
Subjective/Interval History
-
Date of Service: July 20, 2024
patient states she is feeling better
able to eat more
Objective Data
-
Labs:
Laboratory Results
07/20/24
04:10
WBC 8.3
Hgb 11.7 L
Hct 34.2 L
Plt Count 222
Sodium 140
Potassium 3.8
Chloride 110 H
Carbon Dioxide 23
BUN 10
Creatinine 0.9
Glucose 111 H
Calcium 9.3
Vital Signs:
Vital Signs
Temp Pulse Resp BP Pulse Ox
98.4 F 56 18 150/101 97
07/20/24 07:46 07/20/24 06:00 07/20/24 06:00 07/20/24 04:00 07/20/24 06:00
I&O
07/19/24 07/20/24 07/21/24
06:59 06:59 06:59
Intake Total 1200 / 1200 360 / 360
Balance 1200 / 1200 360 / 360
Review of Systems
-
History Source: Patient
All other systems: Reviewed and negative
Physical Exam
-
General: Other (more awake/alert appearing)
HEENT: PERRLA
Respiratory: Clear to Auscultation; Negative Wheezes
Cardiac: Regular Rhythm and S1/S2
GI: Soft and Nontender
Musculoskeletal: No Edema
Skin: Warm, Dry and Other (rash resolved); Negative Rash
Neuro: AO x 3
Psych: Calm
Data Reviewed
-
Diagnostic Radiology: Report Reviewed by me
Labs: Labs Reviewed by me
[2024-07-20] MEDS: SUBUTEX 16 MG SL (08:46)
--- NOTE | 2024-07-20 10:32 | PTCARENOTE ---
office called pt going to [facility] . I will call when pt ids discharged and ready to go
--- NOTE | 2024-07-20 10:33 | PTCARENOTE ---
Dr Kaur aware ok for pt to shower
--- NOTE | 2024-07-20 10:55 | PTCARENOTE ---
Pt now staying another day Discharge canceled
--- NOTE | 2024-07-20 11:43 | PN.CDI ---
CDI
- -
CDI:
Physician Documentation Request
Admit Date: 07/18/24 03:32
Dear Doctor Vincent,
Please review the following and provide your response in the progress notes.
Clinical Indicators:
Pt admitted with PNA on IV Levaquin /RACHAEL
On admission WBC 13.4,Tmax 101.6,HR 113,Respirations 25
Please clarify which of the following most accurately describes the status of the patient's infection:
Sepsis-POA
- Systemic manifestations of infection, with 2 or more SIRS criteria which include:
- Fever >100.4 degrees F or hypothermia < 96.8 degrees F
- Leukocytosis - WBC > 12,000 or leukopenia - WBC < 4,000 or > 10% bands
- Tachycardia > 90 beats per minute
- Tachypnea - RR > 20 breaths per minute or PaCO2 , 32mmHg
Source: Merck Manual 2013
Pneumonia only , Without Systemic Illness
Other ( please specify)
Use of terms such as suspected, likely, concern for, or probable (associated with a specific diagnosis that is being evaluated, monitored, or treated as if it exists) are acceptable and can be coded in the inpatient setting, when documented at the
time of discharge.
Thank you,
Elaina Stearns RN
CDI Specialist
[place] [facility]
Please use your independent medical judgment in providing your response.
--- NOTE | 2024-07-20 13:57 | CM ---
Patient in Custody of [employer]'s Office here with Dx pneumonia, Opiod use, rash resolved. Tox screen + for fentanyl, amphetamine, methamphetamine. Receiving Subutex, PO Abx. Last COWS 3.
Notified by KURT Burks that patient is setup with [facility] in [place] for Subutex on Thursday 9am.
KURT offered patient Inpatient Drug Rehab following her release from custody, and advised her she could return to the ED and he could place the patient from there.
[facility] was notified that patient's discharge was cancelled today.
Case details discussed with Leighann Arcos CM Director.
Plan contact [facility]'s Office when patient is discharged.
[2024-07-20] MEDS: LOVENOX 40 MG SC (17:39)
[2024-07-20] MEDS: LEVAQUIN 750 MG PO (21:08)
--- NOTE | 2024-07-21 03:10 | PTCARENOTE ---
patient m/s orders, ambulatory in room. Patient with no complaints at this time. Plan to discharge in AM. Call [facility] in reach.
--- NOTE | 2024-07-21 07:14 | PTCARENOTE ---
Pt [facility] office will pu by 9 am pt advised to eat breakfast
[2024-07-21] MEDS: SUBUTEX 16 MG SL (07:27)
[2024-07-21] MEDS: CLARITIN 10 MG PO (07:27)
--- NOTE | 2024-07-21 07:35 | W.PN.HOSP.TC ---
Addendum entered and electronically signed by Cristine Kaur MD 07/21/24 08:18:
Sepsis, POA
-resolved
Original Note:
Today's Communication/Plan
-
DC today
Assessment / Plan
Assessment / Plan
IMPRESSION:
24-year-old female with history of fentanyl use presenting to the emergency department with cough and shortness of breath found to have a left lower lobe pneumonia. Last fentanyl use was 11 AM on Thursday.
CT A/P
IMPRESSION:
1. Left lower lobe airspace consolidation, suggestive of pneumonia. No left pleural effusion.
2. No evidence of nephrolithiasis, hydronephrosis, or perinephric stranding.
3. Possible mild gastroenteritis.
PLAN:
1. Pneumonia - community acquired pneumonia, no known risk factors besides drug use, non-iv
-admitted to telemetry
-patient with diffuse erythematous blanchable rash after receiving ceftriaxone/doxycycline. For now those are listed as allergies and antibiotics switched to Levaquin (repeat EKG with improved qtc)
-QTc after Levaquin dose with stable QTc
-OK for DC on 1 more dose of Levaquin to complete a 5 day antibiotic course
2. Opioid use- last use within 24 hours prior to admission.
- started on COWS protocol and tolerating
- patient was using 16 bags fentanyl per day which = 4800mg oxycodone.
- She remains without significant withdrawal
-clonidine held as this was also given pre-rash
-Buprenorphine prescribed at discharge. If patient is released to home, she has an appointment with [facility] tomorrow
Rash
-allergic reaction to either Ceftriaxone/Doxy/ Clonidine or buprenorphine
-antibiotics and clonidine held for now
-if rash recurs will stop buprenorphine
-rash fully resolved this morning
RACHAEL
-now resolved
-s/p IVF, OK to stop
Hypokalemia
-s/p repletion
DVT PPX - lovenox sq
code status - full code
51 minutes spent on patient care
Anticipated Discharge: Today
Subjective/Interval History
-
Date of Service: July 21, 2024
seen this morning, states she feels 'much better'
Objective Data
-
Vital Signs:
Vital Signs
Temp Pulse Resp BP Pulse Ox
98 F 75 16 154/98 99
07/20/24 22:54 07/20/24 22:54 07/20/24 22:54 07/20/24 22:54 07/20/24 22:54
I&O
07/20/24 07/21/24 07/22/24
06:59 06:59 06:59
Intake Total 360 / 360
Balance 360 / 360
Review of Systems
-
History Source: Patient
All other systems: Reviewed and negative
Physical Exam
-
General: Other (more awake/alert appearing)
HEENT: PERRLA
Respiratory: Clear to Auscultation; Negative Wheezes
Cardiac: Regular Rhythm and S1/S2
GI: Soft and Nontender
Musculoskeletal: No Edema
Skin: Warm, Dry and Other (rash resolved); Negative Rash
Neuro: AO x 3
Psych: Calm
Data Reviewed
-
Diagnostic Radiology: Report Reviewed by me
Labs: Labs Reviewed by me
--- NOTE | 2024-07-21 07:37 | W.DS.TRANS ---
DC Summary - Sec Accountant
-
Discharge Instructions:
Discharge Diagnosis/Procedures community acquired pneumonia; opiate withdrawal
treatment
Diet Regular
Activity As tolerated
Driving Restrictions As prior to admission
Bathing Restrictions None
Instructions:
Stand-Alone Forms:
Changes to Home Medications: Yes
Discharge Medications:
DC Medications w/original date entered in [place]
buprenorphine HCl 8 mg sublingual tablet 16 mg (2 x 8 mg) sublingual DAILY #4 tabs 07/20/24
levofloxacin 750 mg tablet 750 mg PO HS #2 tabs 07/20/24
loratadine 10 mg tablet 10 mg PO DAILY #7 tabs 07/20/24
Home Medication Changes
addition of all medications above
Pending Results: No
[2024-07-21 07:45] VITALS: BP 148/80
--- NOTE | 2024-07-21 07:58 | PTCARENOTE ---
Pt left with 2 hide cooking operator with dc paper work and electronic rx
--- NOTE | 2024-07-21 14:13 | W.DCSUMMARY ---
Discharge Summary
Discharge Data
Date of Admission: 07/18/24
Date of Discharge: 07/21/24
-
Pending Results: No
Hospital Course
Discharging Physician : Dr. Cristine Kaur
Disposition : Long-Term (patient to be brought to court case immediately post discharge to decide on home versus assisted)
Principal Discharge diagnosis : Community Acquired Pneumonia, Opiate Withdrawal, Allergic Reactikon
Hospital Course :
Ms. Jolene Scales is a 24 year old woman with history of fentanyl use presenting to the emergency department with cough and shortness of breath.
In the emergency department she was febrile to 101.5, blood pressure was 127/80, P 86, SpO2 97% RA. She had a white count of 13.7, hemoglobin and platelets were normal. Electrolytes were within the normal range. Creatinine was slightly elevated
at 1.4. Chest x-ray with a left lower lobe infiltrate. She had a CT scan of the abdomen which showed gastric wall thickening and prominent air-fluid levels along with mild small bowel wall thickening consistent with a gastroenteritis.
She was admitted to medicine for treatment of Community Acquired Pneumonia with monitoring of opiate withdrawal. She was started on IV Ceftriaxone/Doxy for pneumonia. Evening of hospital day 1 patient had a diffuse blanching erythematous rash
thought 2/2 allergic reaction. These antibiotics were stopped and placed as allergies for now. She was given Benadryl with resolution of the rash. Her antibiotics were changed to Levaquin which she tolerated. *Of note, her QTc on admit was
prolonged and this had resolved prior to initiation of Levaquin. EKG repeated post Levaquin with stable QTc (444). She is discharged and told she needs one more dose of Levaquin to complete her 5 day course.
Patient tolerated Buprenorphine administered via COWS protocol. She reported using 16 bags of fentanyl per day with last dose the morning prior to admission. She was feeling much improved on day of discharge and is interested in rehab programs.
If she is not imprisoned following court case, an outpatient appointment is made for her tomorrow at 9AM (patient has information). She is prescribed Buprenorphine at discharge.
Patient is referred to facing machine operator to clarify her allergies given she was administered Ceftriaxone, Doxy and Clonidine prior to rash onset.
Time spent on discharge was 40 minutes.
Important imaging findings :
Procedure findings :
Discharge Plan
-
Patient Disposition: Long-Term
Discharge Diagnosis/Procedures: community acquired pneumonia; opiate withdrawal treatment
Diet: Regular
Activity: As tolerated
Driving Restrictions: As prior to admission
Bathing Restrictions: None
Activity Restrictions/Additional Instructions:
If you are released to go home; then we have made an outpatient appointment for you at 9AM on Thursday at [facility] in [place]. ([address] [place] [address])
Referrals:
Sasha Womack MD [Consulting Staff] - in one to two weeks (follow up to go over allergy testing; diffuse rash post Ceftriaxone/Doxycycline and clonidine. All 3 were stopped with resolution of rash. )
NONE,* [Family Provider] -
Additional Discharge Medication Instructions: You have 1 more dose of Levaquin antibiotic. It is due this evening.
Continue Buprenorphine 16mg (2 tabs) daily to help treat opiate withdrawal. You are prescribed 2 doses to make it to outpatient appointment if you are released to go home.
Continue Loratadine daily for another week given recent allergic reaction.
Prescriptions:
New
levofloxacin 750 mg Tablet
750 mg PO HS Qty: 2 0RF
loratadine 10 mg Tablet
10 mg PO DAILY Qty: 7 0RF
buprenorphine HCl 8 mg Tablet, Sublingual
16 mg sublingual DAILY Qty: 4 0RF
Rx Instructions:
Take 2 tabs daily. You are prescribed 2 doses until seen as outpatient on Thursday
Discharge Orders:
Discharge Patient (As Directed); Ordered 07/21/24
Ordered By: Cristine Kaur
Discharge Date and Time
Discharge Date/Time: 07/21/24 08:03
Print Language: ANGOLAN
== END 2024-07-21 08:03 | DRG 871 ==
LOC: IMU 03:32
PROVIDERS: Student in an Organized Health Care Education/Training Program; ADMITTING PHYSICIAN Internal Medicine; ATTENDING PHYSICIAN Student in an Organized Health Care Education/Training Program; EMERGENCY PHYSICIAN Emergency Medicine
DX: A41.9 Sepsis, unspecified organism (principal); J18.9 Pneumonia, unspecified organism; F11.23 Opioid dependence with withdrawal; N17.9 Acute kidney failure, unspecified; F17.290 Nicotine dependence, other tobacco product, uncomplicated; E87.6 Hypokalemia; Z11.52 Encounter for screening for COVID-19; Z91.52 Personal history of nonsuicidal self-harm; L27.1 Localized skin eruption due to drugs and medicaments taken internally; T36.95XA Adverse effect of unspecified systemic antibiotic, initial encounter
CPT/HCPCS: 71046; 74176; 80048; 80053; 80076; 80306; 80307; 81003; 81015; 82077; 82550; 83605; 83735; 84100; 84703; 85025; 85027; 87040; 87086; 87502; 87811; 93005; 96361; 96365; 96375; 96376; 99285